=== PATIENT | male | born 1945 | race Caucasian/White ===

== ENCOUNTER 2020-01-28 12:12 | Observation (INO) | payer MEDICARE, SELFPAY ==
[2020-01-28] VITALS (8 sets, daily range): BP systolic 130–156; BP diastolic 60–84; PULSE 68–96; RESP 14–17; TEMP 36.8–36.9; O2SAT 97–100; BMI 27.6
--- NOTE | ~2020-01-28 | XR_ITS ---
XR knee LT 3V DATE: 01/28/2020 12:52 INDICATION: Pain, redness and swelling of left knee for days TECHNIQUE: 3 views COMPARISON: 10/26/2016 left knee FINDINGS: There is anterior soft tissue swelling, particularly in the suprapatellar area. Mild knee j oint effusion is suggested. There is minimal periarticular spurring of the patella. There are some stable calcifications overlyin g the suprapatellar area, so noted on 10/26/2016 No fracture or dislocation, periosteal reaction or bone destruction, radiopaque intra-articular loose body or chondrocalcinosis is detected. IMPRESSION: Anterior soft tissue swelling and mild joint effusion Reviewed, dictated and finalized at location A.
--- NOTE | ~2020-01-28 | US_ITS ---
. EXAMINATION: US_ABSCYSTIMG_US DATE: 01/29/2020 15:52 INDICATION: Pain at the right first metatarsophalangeal joint TECHNIQUE: A time-out was performed to verify the patient's name, date of , and procedure to be performed . The procedure and its benefits and risks were discussed with the patient. Risks specifically discus sed included bleeding and infection. The patient understood the risks and agreed to proceed. The skin over the dorsum of the right first metatarsophalangeal joint was prepped and draped in usual sterile manner. 0.3 mL 1% lidocaine was used for local anesthesia. Utilizing ultrasound guidance a 21-gaug e needle was advanced into the distended hypoechoic dorsal recess of the joint space but yielded negl igible fluid visible only at the hub of the needle. This was nonetheless and to the lab for potential stenosis. A second 21-gauge needle was advanced into the tarsal recess and lavaged with 0.5 mL of pr eservative free sterile saline. The lavage fluid transitioned to a more turbid yellowish-mendoza color an d this was also sent to the lab for studies as ordered by the referring physician. Passes were made w ith a 25G needle into the lesion. A sterile bandage was applied. There were no immediate complicati ons. FINDINGS: Grayscale ultrasound images demonstrate aspiration needle advanced into the distended hypoechoic dors al recess of the first metatarsophalangeal joint. There are few minute mobile echogenic foci within t he recess but no clearly anechoic fluid suggesting synovitis potentially with crystals. IMPRESSION: 1. Ultrasound-guided aspiration of the right first metatarsophalangeal joint yielding scant fluid on initial aspiration but with successful lavage of the joint space with preservative-free marrow saline with no clearly discernible change in color and transparency of the lavage fluid. Reviewed, dictated and finalized at location A. IMPRESSION: 1. Ultrasound-guided aspiration of the right first metatarsophalangeal joint [place] scant fluid on initial aspiration but with successful lavage of the join t space with preservative-free marrow saline with no clearly discernible change in color and transparency of the lavage fluid.
--- NOTE | ~2020-01-28 | US_ITS ---
EXAMINATION: US knee asp inj w image LT DATE: 01/28/2020 15:03 INDICATION: Left anterior knee edema and erythema. TECHNIQUE: The procedure including the risks and benefits was discussed with the patient. Risks discu ssed included bleeding and infection. The patient understood the risks and agreed to proceed. The sk in overlying the lateral aspect of the suprapatellar pouch of the left knee was prepped and draped in usual sterile fashion. Anesthetic was administered with 1% lidocaine subcutaneously. An 20 gauge n eedle was advanced under continuous ultrasound observation into the fluid collection at the suprapate llar pouch 13 mm of fluid was aspirated and sent to the lab. The needle was removed and the entry si te was cleaned and dressed. Post procedure ultrasound demonstrated no hemorrhage. FINDINGS: Ultrasound images demonstrate a small left knee joint effusion with the needle within the f luid at the lateral aspect of the suprapatellar pouch. 13 mL of clear yellow viscous fluid was aspira pito. IMPRESSION: 1. Successful Ultrasound-guided knee joint aspiration. Reviewed, dictated and finalized at location A.
--- NOTE | ~2020-01-28 | XR_ITS ---
XR foot RT min 3V DATE: 01/29/2020 14:55 INDICATION: Pain, erythema, swelling at right first metatarsophalangeal joint. TECHNIQUE: 4 views COMPARISON: None FINDINGS: There is mild osteoarthritis at the first metatarsophalangeal joint. There is osteoarthriti c change at some of the tarsal metatarsal and interphalangeal joints as well. Os tibiale externum, normal variant. No fracture, dislocation, periosteal reaction or bone destruction. There is mild plantar calcaneal en thesopathy. IMPRESSION: Polyarticular osteoarthritis Reviewed, dictated and finalized at location A.
--- NOTE | 2020-01-28 12:44 | PC.NURSE ---
Pt to XRAY via WC.
--- NOTE | 2020-01-28 12:47 | ED.LOWEXIN ---
HPI - Extremity Injury (Lower) General Chief Complaint: Extremity Injury, Lower Stated Complaint: left knee pain Time Seen by Provider: 01/28/20 12:27 Source: patient Mode of arrival: ambulatory Limitations: no limitations History of Present Illness HPI Narrative: This is a 74 year old male that presents to the ER for left knee swelling and redness x 3 days. Reports he had an injury to the knee a couple weeks ago when he tripped and fell forward walking up the steps. Reports he skinned the knee then. Reports on Monday he started to note redness and swelling of the knee. Reports pain that is worse with movement and relieved with rest. Denies fever. Related Data Allergies Allergy/AdvReac Type Severity Reaction Status Date / Time morphine Allergy Unknown TROUBLE Verified 01/28/20 12:33 SLEEPING Review of Systems Review of Systems: Narrative: CONSTITUTIONAL: Denies fever SKIN: Reports erythema MUSCULOSKELETAL: Reports joint pain, and myalgia. NEUROLOGIC: Denies numbness All systems reviewed & are unremarkable except as noted in HPI and below PMFSH Past Medical History Medical History (Updated 01/28/20 @ 18:05 by Barbara Yarbrough PA-C) History of hyperlipidemia History of hypertension Social History Social History Gender identity (if verbalized by the patient): Male Exam Narrative: Exam Narrative: GENERAL: Well-appearing, well-nourished, and in no acute distress. HEAD: Normocephalic, atraumatic. EYES: EOMI. EXTREMITIES: Normal range of motion. Left anterior knee with mild to moderate erythema and edema. No lymphangitic streaking. Normal DP pulses SKIN: Warm, dry, no rash. NEURO: No focal deficits. Alert and oriented x3. PSYCH: Normal mood and affect Course Consultations Consultation #1: Spoke with Dr. Nguyen about patient and work-up. Patient will be treated for cellulitis. He will consult. Date: 01/28/20 Time: 18:04 Consultation #2: Spoke with hospitalist about patient and work-up accepts admission Date: 01/28/20 Time: 18:04 Vital Signs Vital signs: Vital Signs Temperature 98.5 F 01/28/20 12:29 Pulse Rate 69 01/28/20 12:29 Respiratory Rate 17 01/28/20 12:29 Blood Pressure 146/67 H 01/28/20 12:29 Pulse Oximetry 100 01/28/20 12:29 Temperature 98.5 F 01/28/20 12:29 Pulse Rate 96 01/28/20 16:45 Respiratory Rate 14 01/28/20 16:45 Blood Pressure 145/70 H 01/28/20 16:45 Pulse Oximetry 99 01/28/20 16:45 MDM - Extremity Injury (Lower) MDM Narrative Medical decision making narrative: Patient presents to the emergency department with left anterior knee swelling and redness. He is afebrile and nontoxic-appearing. CBC is without leukocytosis. Inflammatory markers are elevated. Left knee x-ray shows anterior soft tissue swelling and a mild joint effusion. Left knee joint was aspirated under ultrasound guidance and resulted 13 cc of yellow fluid. No crystals were seen, 1297 nucleated cells with 33% neutrophils. White blood cells were seen, but no organisms. I spoke with Dr. Sue about ultrasound who reports there does not appear to be any fluid collection in the bursa. Spoke with Dr. Nguyen about patient and work-up. Patient will be treated for cellulitis. He will consult. Would like patient started on ceftriaxone and vanc. First dose given in the ED. Spoke with hospitalist about patient and work-up accepts admission Lab Data Attestation: I reviewed the patient's lab results. Result diagrams: 01/28/20 12:59 01/28/20 12:59 Labs: Lab Results 01/28/20 01/28/20 01/28/20 Range/Units 12:59 12:59 12:59 WBC 8.8 (4.5-10.0) K/mm3 RBC 3.91 L (4.6-6.20) M/mm3 Hgb 12.8 L (14.0-18.0) g/dL Hct 38.6 L (42.0-52.0) % MCV 98.7 (80-100) fl MCH 32.7 (26-34) pg MCHC 33.2 (32-36) g/dl RDW 12.8 (11.5-14.5) % Plt Count 144 L (150-375) k/mm3 MPV 10.1 (7.4-10.4) fl Immature Gran % (Auto) 0.7 H (
[2020-01-28 13:09] LABS: Basophils Percent Auto 0.5 % (0.2-1.2); Eosinophils Percent Auto 0.5 % (0-4.4); Hematocrit 38.6 % (42.0-52.0); Hemoglobin 12.8 g/dL (14.0-18.0); Immature Granulocyte Absolute 0.06 K/mm3 (0.00-0.031); Immature Granulocyte Percent A 0.7 % (0-0.5); Immature Platelet Fraction Pct 2.9 % (0.9-11.2); Lymphocytes Absolute Auto 1.61 K/mm3 (0.9-3.2); Lymphocytes Percent Auto 18.3 % (18.3-44.2); Mean Corpuscular HGB Conc 33.2 g/dl (32-36); Mean Corpuscular Hemoglobin 32.7 pg (26-34); Mean Corpuscular Volume 98.7 fl (80-100); Mean Platelet Volume 10.1 fl (7.4-10.4); Monocytes Absolute Auto 0.9 K/mm3 (0.1-0.6); Monocytes Percent Auto 10.5 % (2.6-8.5); Neutrophils Absolute Auto 6.1 K/mm3 (1.3-6.7); Neutrophils Percent Auto 69.5 % (45.5-73.1); Platelet Count Result 144 k/mm3 (150-375); Red Blood Count 3.91 M/mm3 (4.6-6.20); Red Cell Distribution Width 12.8 % (11.5-14.5); White Blood Count 8.8 K/mm3 (4.5-10.0)
[2020-01-28 13:25] LABS: Anion Gap 8 mmol/L (8-16); Blood Urea Nitrogen 16 mg/dL (9-20); Calcium 9.2 mg/dL (8.4-10.2); Carbon Dioxide 28 mmol/L (22-30); Chloride 101 mmol/L (98-107); Estimated CRCL calculation 80 ml/min; Estimated Glomerular Filt Rate > 60; Glucose 106 mg/dL (75-110); Potassium 3.9 mmol/L (3.4-5.0); Sodium 137 mmol/L (137-145); Uric Acid 6.9 mg/dL (3.5-8.5)
[2020-01-28 13:36] LABS: CRP 13.3 mg/dL (<1.0)
[2020-01-28 13:49] LABS: Erythrocyte Sedimentation Rate 111 mm/hr (0-20)
[2020-01-28 14:43] LABS: INR 1.1; Prothrombin Time 14.3 Seconds (11.1-14.7)
[2020-01-28 16:06] LABS: Appearance Synovial Fluid Hazy (Clear); Color Synovial Fluid Yellow (Colorless); Lymphocytes Synovial Fluid 12 %; Macrophages Synovial Fluid 2 %; Monocytes Synovial Fluid 53 %; Neutrophils Synovial Fluid 33 % (0-25); Nucleated Cell Synovial Fluid 1297 /uL (0-200); RBC Synovial Fluid 177 /uL (0-0); Source Synovial Fluid Synovial fluid
[2020-01-28 16:07] LABS: Crystals Synovial Fluid None Seen (None Seen)
--- NOTE | 2020-01-28 17:57 | PC.NURSE ---
Dietary tray ordered for pt.
--- NOTE | 2020-01-28 19:53 | ADMGEN ---
This patient, Malvin Foreman, was admitted to [facility] Surg Room 314-01. Patient/family oriented to hospital policies and general routines including ID bracelet, bed and alarms, visiting hours, pain management, procedures, bathroom and other care routines, personal items, smoking policy, room service/diet, and visiting hours. Valuables list has been completed. Information on how to activate the Rapid Response Team has been discussed. Patient/Family are encouraged to report perceived risks to care and to ask questions if they do not understand what they are told or what they should do.
--- NOTE | 2020-01-28 20:30 | PM.IMHP ---
H&P: HPI History of Present Illness Date/Time: 01/28/20 20:30 Chief complaint: Left knee pain. Narrative: Malvin Foreman is a 74-year-old male with hypertension, hyperlipidemia, chronic mild thrombocytopenia, and history of prostate cancer status post prostatectomy who presented to the emergency department earlier today via private vehicle from home for evaluation of left knee pain. Several weeks ago he fell forward while walking up steps and it sounds like he hit his left knee at that time, with possible small abrasion. It healed without issue however when he awoke several days ago on Monday, the knee was red, swollen, and painful. Due to the pain he has not been able to bear weight as usual, and in fact his purchased a cane that he has been using. The pain seems to ease up with rest. His appetite has been poor but he denies nausea and vomiting. He has not had fever. No chest pain or shortness of breath. No history of multidrug resistant organisms. No history of gout. Review of Systems Review of Systems: Narrative: 12 systems were reviewed with pertinent positives and negatives as per HPI. he has occasional frontal headaches at the end of the day for which he will take Tylenol. He denies cold and flu symptoms. Except as documented, all other systems were reviewed and are negative. [facility] Past Medical History Medical History (Updated 01/28/20 @ 21:03 by Ashlyn Clement PA-C) Chronic anemia Baseline hemoglobin is around 12.0. Hypertension Thrombocytopenia Chronic mild thrombocytopenia. Surgical History Surgical History (Updated 01/28/20 @ 21:02 by Ashlyn Clement PA-C) History of arthroscopy of right knee History of prostatectomy (~06/22/05) Nerve-sparing radical retropubic prostatectomy with bilateral pelvic lymphadenectomy. History of vasectomy (~1988) Status post tendon repair (~11/01/16) Left quadriceps tendon repair. Family History Family History Father Prostate carcinoma Mother Colon cancer Social History Social History (Updated 01/28/20 @ 20:53 by Ashlyn Clement PA-C) Years smoked: 15 Smoking status: Former smoker Tobacco type: cigarettes and cigars Alcohol intake: current Drinks per week: 2 Substance use: never Additional living arrangements comments: Resides in [place] with his spouse. 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 Gender identity (if verbalized by the patient): Male Sexual Orientation (if Verbalized by the Patient): Straight or Heterosexual Spiritual care concerns: No Meds Home Medications and Allergies Home Medications Medication Instructions Recorded Confirmed Type lisinopril-hydrochlorothiazide 1 tablet PO DAILY 01/28/20 01/28/20 History propranolol 10 mg PO DAILY 01/28/20 01/28/20 History sertraline 100 mg PO DAILY 01/28/20 01/28/20 History simvastatin 40 mg PO DAILY 01/28/20 01/28/20 History Allergies Allergy/AdvReac Type Severity Reaction Status Date / Time morphine Allergy Unknown TROUBLE Verified 01/28/20 12:33 SLEEPING Vital Signs Vital Signs - 24 hr 01/28/20 12:29 01/28/20 14:20 01/28/20 16:45 Temperature 98.5 F Pulse Rate 69 68 96 Respiratory Rate 17 15 14 Blood Pressure 146/67 H 130/84 145/70 H Pulse Oximetry 100 100 99 01/28/20 18:22 01/28/20 19:08 01/28/20 19:53 Temperature Pulse Rate 78 82 90 Respiratory Rate 15 16 17 Blood Pressure 152/77 H 156/76 H 150/84 H Pulse Oximetry 98 97 97 Exam Narrative: Exam Narrative: General: Well-developed male in semi-Wetzel position in bed in no distress. Weight: 95.5 kg. BMI 20.6. HEENT: PERRL, EOMI. Sclerae anicteric. Oral mucosa moist. Neck: Supple. Respiratory: Lungs are clear to auscultation bilaterally. Cardiovascular: Regular rate and rhythm with S1-S2. Gastrointestinal: Abdomen is soft, nontender, and nondistended with positive bowel sounds.
[2020-01-28] MEDS: ACETAMINOPHEN 325 MG TABLET 650 MG PO (21:00)
--- NOTE | 2020-01-28 23:54 | PM.CNOR ---
History of Present Illness HPI Consult date: 01/29/20 Chief complaint: Left knee pain. [facility] Past Medical History Medical History (Updated 01/29/20 @ 11:46 by Reagan Hdz PA-C) Chronic anemia Baseline hemoglobin is around 12.0. Dyslipidemia Hypertension Thrombocytopenia Chronic mild thrombocytopenia. Surgical History Surgical History (Updated 01/28/20 @ 21:02 by Ashlyn Clement PA-C) History of arthroscopy of right knee History of prostatectomy (~06/22/05) Nerve-sparing radical retropubic prostatectomy with bilateral pelvic lymphadenectomy. History of vasectomy (~1988) Status post tendon repair (~11/01/16) Left quadriceps tendon repair. Family History Family History Father Prostate carcinoma Mother Colon cancer Social History Social History (Updated 01/28/20 @ 20:53 by Ashlyn Clement PA-C) Years smoked: 15 Smoking status: Former smoker Tobacco type: cigarettes and cigars Alcohol intake: current Drinks per week: 2 Substance use: never Additional living arrangements comments: Resides in [place] with his spouse. 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 Gender identity (if verbalized by the patient): Male Sexual Orientation (if Verbalized by the Patient): Straight or Heterosexual Spiritual care concerns: No Meds Home Medications and Allergies Home Medications Medication Instructions Recorded Confirmed Type lisinopril-hydrochlorothiazide 1 tablet PO DAILY 01/28/20 01/28/20 History propranolol 10 mg PO DAILY 01/28/20 01/28/20 History sertraline 100 mg PO DAILY 01/28/20 01/28/20 History simvastatin 40 mg PO DAILY 01/28/20 01/28/20 History Allergies Allergy/AdvReac Type Severity Reaction Status Date / Time morphine Allergy Unknown TROUBLE Verified 01/28/20 12:33 SLEEPING Vital Signs Vital Signs - 24 hr 01/28/20 12:29 01/28/20 14:20 01/28/20 16:45 Temperature 36.9 C Pulse Rate 69 68 96 Respiratory Rate 17 15 14 Blood Pressure 146/67 H 130/84 145/70 H Pulse Oximetry 100 100 99 01/28/20 18:22 01/28/20 19:08 01/28/20 19:40 Temperature 36.9 C Pulse Rate 78 82 78 Respiratory Rate 15 16 16 Blood Pressure 152/77 H 156/76 H 145/60 H Pulse Oximetry 98 97 99 01/28/20 19:53 01/28/20 22:00 Temperature 36.8 C Pulse Rate 90 76 Respiratory Rate 17 16 Blood Pressure 150/84 H 137/62 Pulse Oximetry 97 97 Results Labs Result Diagrams: 01/29/20 05:23 01/29/20 05:23 Labs: Abnormal lab results 01/28/20 01/28/20 01/28/20 Range/Units 12:59 12:59 12:59 RBC 3.91 L (4.6-6.20) M/mm3 Hgb 12.8 L (14.0-18.0) g/dL Hct 38.6 L (42.0-52.0) % Plt Count 144 L (150-375) k/mm3 Immature Gran % (Auto) 0.7 H (0-0.5) % [place] % (Auto) 10.5 H (2.6-8.5) % [place] # (Auto) 0.9 H (0.1-0.6) K/mm3 Abs Immat Gran (auto) 0.06 H (0.00-0.031) K/mm3 ESR 111 H (0-20) mm/hr APTT 39.0 H (22.3-36.8) SECONDS C-Reactive Protein 13.3 H (<1.0) mg/dL Synovial Appearance (Clear) Synovial RBC (0-0) /uL Synovial Nuc Cells (0-200) /uL Synovial Neutrophils (0-25) % 01/28/20 Range/Units 14:45 RBC (4.6-6.20) M/mm3 Hgb (14.0-18.0) g/dL Hct (42.0-52.0) % Plt Count (150-375) k/mm3 Immature Gran % (Auto) (0-0.5) % [place] % (Auto) (2.6-8.5) % [place] # (Auto) (0.1-0.6) K/mm3 Abs Immat Gran (auto) (0.00-0.031) K/mm3 ESR (0-20) mm/hr APTT (22.3-36.8) SECONDS C-Reactive Protein (<1.0) mg/dL Synovial Appearance Hazy A (Clear) Synovial RBC 177 H (0-0) /uL Synovial Nuc Cells 1297 H (0-200) /uL Synovial Neutrophils 33 H (0-25) % H & H 01/28/20 Range/Units 12:59 Hgb 12.8 L (14.0-18.0) g/dL Hct 38.6 L (42.0-52.0) % Coagulation 01/28/20 Range/Units 12:59 INR 1.1 All other labs normal. Quality VTE Prophylaxis VTE prophylaxis
[2020-01-29] MEDS: ACETAMINOPHEN 325 MG TABLET 650 MG PO ×2 (03:10→06:57)
[2020-01-29 06:00] VITALS: BP 140/62; PULSE 68; RESP 16; TEMP 36.4; O2SAT 100
[2020-01-29 06:02] LABS: Basophils Absolute Auto 0.1 K/mm3 (0.0-0.1); Basophils Percent Auto 0.5 % (0.2-1.2); Eosinophils Absolute Auto 0.1 K/mm3 (0-0.3); Eosinophils Percent Auto 0.7 % (0-4.4); Hematocrit 35.3 % (42.0-52.0); Hemoglobin 11.8 g/dL (14.0-18.0); Immature Granulocyte Absolute 0.05 K/mm3 (0.00-0.031); Immature Granulocyte Percent A 0.5 % (0-0.5); Lymphocytes Absolute Auto 1.29 K/mm3 (0.9-3.2); Lymphocytes Percent Auto 12.9 % (18.3-44.2); Mean Corpuscular HGB Conc 33.4 g/dl (32-36); Mean Corpuscular Hemoglobin 32.8 pg (26-34); Mean Corpuscular Volume 98.1 fl (80-100); Mean Platelet Volume 10.3 fl (7.4-10.4); Monocytes Absolute Auto 1.3 K/mm3 (0.1-0.6); Monocytes Percent Auto 12.5 % (2.6-8.5); Neutrophils Absolute Auto 7.3 K/mm3 (1.3-6.7); Neutrophils Percent Auto 72.9 % (45.5-73.1); Platelet Count Result 130 k/mm3 (150-375); Red Cell Distribution Width 12.7 % (11.5-14.5)
[2020-01-29 06:06] LABS: Anion Gap 9 mmol/L (8-16); Blood Urea Nitrogen 17 mg/dL (9-20); Calcium 9.1 mg/dL (8.4-10.2); Carbon Dioxide 27 mmol/L (22-30); Chloride 98 mmol/L (98-107); Estimated CRCL calculation 90 ml/min; Estimated Glomerular Filt Rate > 60; Glucose 114 mg/dL (75-110); Potassium 4.1 mmol/L (3.4-5.0); Sodium 134 mmol/L (137-145)
[2020-01-29 06:57] VITALS: TEMP 38.2
[2020-01-29] MEDS: SIMVASTATIN 20 MG TABLET 40 MG PO (08:41)
[2020-01-29] MEDS: hydroCHLOROthiazide 12.5 MG CAPSULE PO (08:41)
[2020-01-29] MEDS: lisinopriL 20 MG TABLET PO (08:41)
[2020-01-29] MEDS: SERTRALINE HCL 50 MG TABLET 100 MG PO (08:42)
[2020-01-29 10:24] VITALS: PULSE 68
[2020-01-29] MEDS: PROPRANOLOL HCL 10 MG TABLET PO (10:24)
--- NOTE | 2020-01-29 11:44 | PM.IMPN ---
Progress Note: A&P Assessment and Plan (1) Infection of left knee: Code(s): M00.9 - Pyogenic arthritis, unspecified Status: Acute Assessment and Plan: Left knee cellulitis versus bursitis versus possible septic joint. Dr. Nguyen has been consulted from ED and appreciate input. Status post arthrocentesis per IR, with hazy yellow fluid, 1297 nucleated cells and 33% neutrophils. Gram stain of fluid shows many WBC with no organisms seen. Cultures pending. He states he feels better today. Anxious to be discharged. He has been started on empiric ceftriaxone and vancomycin, pending cultures. Will continue this for now Will await further input from Dr. Nguyen PT/OT have been ordered (2) Hypertension: Code(s): I10 - Essential (primary) hypertension Status: Acute Assessment and Plan: Blood pressures 140s sys today Continue antihypertensives and monitor daily (3) Chronic anemia: Code(s): D64.9 - Anemia, unspecified Status: Acute Assessment and Plan: Chronic and stable on review of previous labs. (4) Thrombocytopenia: Code(s): D69.6 - Thrombocytopenia, unspecified Status: Acute Assessment and Plan: Chronic and stable on review of previous labs. Subjective Date/time seen: 01/29/20 11:44 Interval history: Patient is a 74 yo M with history of hypertension, dyslipidemia, chronic mild thrombocytopenia, and history of prostate cancer status post prostatectomy who is here for evaluation of possible left knee cellulitis vs bursitis vs septic arthritis. Patient states he is feeling better today. Pain is less severe and is able to bend his left leg at the knee more so then from Monday. Swelling has improved as well. He has no other complaints. Anxious to be discharged. Denies f/c/s, headaches, dizziness, lightheadedness, cp/palpitations, sob/cough, n/v/d/c, abd pain, changes in BMs, dysuria, hematuria, cloudy urine, calf pain/swelling. Review of Systems Review of Systems: All systems reviewed & are unremarkable except as noted in HPI and below Exam Narrative: Exam Narrative: General: Patient resting supine in bed in no acute distress. HEENT: Normocephalic, EOMI, oral mucosa moist. Cardiovascular: Rate and rhythm are regular. No notable murmur, rub, or gallop. Respiratory: Lungs clear to auscultation all stone. Non-labored breathing. Abdomen: Soft, non-tender, non-distended, bowel sounds present. Extremities: Peripheral pulses intact. Minimal edema, with erythema and warmth on left anterior knee. Mildly tender to touch. Slight pain with active and passive range of motion. NVI b/l LE. NTTP b/l calves Neuro: No focal neurological deficits. Speech is clear. Objective Data Vital Signs Vital Signs: Last Vital Signs Temp 100.8 F H 01/29/20 06:57 Pulse 68 01/29/20 10:24 Resp 16 01/29/20 06:00 BP 140/62 01/29/20 06:00 Pulse Ox 100 01/29/20 06:00 Intake/Output Intake/Output: Intake & Output 01/26/20 01/27/20 01/28/20 01/29/20 23:59 23:59 23:59 23:59 Intake Total 600 940 Output Total 13 100 Balance 587 840 Meds/Results Medications: Active Medications Generic Name Dose Route Start Last Admin Trade Name Freq PRN Reason Stop Dose Admin Acetaminophen 650 mg 01/28/20 20:44 01/29/20 06:57 Tylenol Tablet PO 650 mg Q6H PRN Administration Mild Pain (1-3) or Fever Hydrochlorothiazide 12.5 mg 01/29/20 09:00 01/29/20 08:41 Hydrochlorothiazide PO 12.5 mg DAILY ANSHU Administration Ceftriaxone Sodium 2 gm in 100 mls @ 200 mls/hr 01/29/20 17:00 Rocephin 2 Gm/D5w 100 Ml IVPB Q24H ANSHU Vancomycin HCl 1,500 mg in 500 mls @ 333.333 mls/hr 01/29/20 06:00 01/29/20 0
--- NOTE | 2020-01-29 13:53 | PCPTNOTE ---
PT eval on hold awaiting Ortho consult.
--- NOTE | 2020-01-29 13:55 | PCOTNOTE ---
OT eval on hold awaiting Ortho consult.
[2020-01-29 14:00] VITALS: BP 122/57; PULSE 66; RESP 16; TEMP 36.5; O2SAT 98
--- NOTE | 2020-01-29 14:35 | PM.CNOR ---
Assessment and Plan Additional Plan Patient is a 74-year-old gentleman who is known to me. Approximately 3 or 4 years ago he had a quadriceps tendon repair on the left knee. He did well postoperatively. He has had no problems until 4 days ago when he was on a long car ride with his knee bent and knee developed gradual onset of progressively worsening severe pain in the anterior aspect of his left knee and redness and warmth. He has never had this before. He had no fevers or chills he has had no recent infections. He has been able to continue walking on this. He was seen in the emergency room where the area looked bright red in the front of his knee. He was sent for an ultrasound which showed no evidence of prepatellar bursal fluid but did show a moderate effusion in the knee and the knee was aspirated of fluid which was sent for cell count and analysis. There were 1300 nucleated white cells of which only 33% were neutrophils which argues against acute septic arthritis. His white count this morning is 10. His sedimentation rate yesterday was a 111 C reactive protein 13. A uric acid was high normal at 6.9. He does take lisinopril as part of his blood pressure regimen. His blood pressure has been well controlled here in the hospital. He is also on lisinopril and propranolol. He states he did have a fall 3 weeks ago and hit his head but he did not injure his knee at all nor did he have any injury to the knee on the day of the onset of the symptoms.He was admitted placed on ceftriaxone 2 g Q 24 hours and vancomycin. Over the last 18 hours is pain and redness have dramatically improved. On exam today he has range of motion from 0-130 degrees at the left knee actively. He has 5/5 quadriceps strength. There is no soft tissue swelling in the front of the knee but he does have brawny discoloration over the front of the knee in the area about 6 in long 4 in wide centered over the patella. There is no prepatellar swelling or bursal effusion palpable. He did have an a focal area of moderately severe tenderness about 1 in proximal to the patella which would be the quadriceps tendon where he does have a nonabsorbable sutures in the tendon. There is no superficial swelling or fluctuance in this area however. The distal quadriceps tendon is thickened in this region as 1 would expect following rupture repair. The knee itself was nontender and he had no palpable effusion in the knee today. His chief complaint today is his right 1st metatarsal phalangeal joint which started hurting him in the mill the night. Has a little mild symptoms in the same joint to the left. On exam he has rather severe tenderness around the right 1st metatarsophalangeal joint. There is erythema on the medial aspect of the joint and mild swelling. I asked him about gout. He has never been diagnosed as having gout but he did have some arthritis flare-up some years ago that he suspected might be gout. His father and his older years had advanced gout. He had x-rays performed of the left knee in yesterday in the emergency room which demonstrate thickening of the distal quadriceps tendon than some focal calcifications just proximal to the patella representing dystrophic calcifications common with tendinopathy in tendon rupture and mild joint effusion suggested. Today patient states he feels 75% better already with respect to his left knee but he can't walk now because of the severe metatarsophalangeal joint pain in the right foot. Impression: Patient has elevated inflammatory markers normal white count no fevers or chills. He has had such dramatic improvement in the redness warmth and pain in his distal quadriceps tendon region that I a would think this would not be consistent with a bacterial infection involving the tendon and sutures. Nevertheless, that is a diagnostic possibility. Gout can certainly Yamilex lysed and form tophi and areas of scar tissue and has a predilection for these areas and this
[2020-01-29 16:54] LABS: Crystals Synovial Fluid Many Msu (None Seen)
[2020-01-29 22:00] VITALS: BP 114/65; PULSE 71; RESP 16; TEMP 36.4; O2SAT 96
[2020-01-30 05:29] LABS: Basophils Percent Auto 0.4 % (0.2-1.2); Eosinophils Absolute Auto 0.1 K/mm3 (0-0.3); Eosinophils Percent Auto 1.2 % (0-4.4); Hemoglobin 11.8 g/dL (14.0-18.0); Immature Granulocyte Absolute 0.04 K/mm3 (0.00-0.031); Immature Granulocyte Percent A 0.5 % (0-0.5); Lymphocytes Percent Auto 20.5 % (18.3-44.2); Mean Corpuscular HGB Conc 33.7 g/dl (32-36); Mean Corpuscular Hemoglobin 32.4 pg (26-34); Mean Corpuscular Volume 96.2 fl (80-100); Mean Platelet Volume 9.8 fl (7.4-10.4); Monocytes Absolute Auto 0.8 K/mm3 (0.1-0.6); Monocytes Percent Auto 10.7 % (2.6-8.5); Neutrophils Absolute Auto 5.2 K/mm3 (1.3-6.7); Neutrophils Percent Auto 66.7 % (45.5-73.1); Platelet Count Result 140 k/mm3 (150-375); Red Blood Count 3.64 M/mm3 (4.6-6.20); Red Cell Distribution Width 12.5 % (11.5-14.5); White Blood Count 7.8 K/mm3 (4.5-10.0)
[2020-01-30] MEDS: methylPREDNISolone (MEDROL) DOSEPACK 4 MG TABLETS PO ×2 (05:38→13:49)
[2020-01-30 05:40] LABS: Anion Gap 8 mmol/L (8-16); Blood Urea Nitrogen 14 mg/dL (9-20); Calcium 9.2 mg/dL (8.4-10.2); Carbon Dioxide 26 mmol/L (22-30); Chloride 100 mmol/L (98-107); Estimated CRCL calculation 90 ml/min; Estimated Glomerular Filt Rate > 60; Glucose 114 mg/dL (75-110); Magnesium 2.1 mg/dL (1.6-2.3); Potassium 3.8 mmol/L (3.4-5.0); Sodium 134 mmol/L (137-145)
[2020-01-30 05:56] VITALS: BP 135/64; PULSE 65; RESP 16; TEMP 36.2; O2SAT 99
[2020-01-30 05:57] LABS: Vancomycin Trough 8.7 ug/mL (10.0-20.0)
--- NOTE | 2020-01-30 07:08 | PM.PNORT ---
Progress Note: A&P Additional Plan Aspiration from toe showed MS crystals , this would confirm this appears to be gout attacks of both knee and toe. cx-from knee neg at this point. Pt states knee and toe are better this am, he is on medrol dose pack. Will stop abx , have PT work with pt today to get ambulating. Hopefully he will be comfortable by tomorrow to go home. discussed with him he will need to have PCP get him on [facility]out care Subjective Subjective Date/Time Seen: 01/30/20 07:08 Objective Data Vital Signs Vital Signs: Vital Signs - 24 hr 01/29/20 10:24 01/29/20 14:00 01/29/20 22:00 Temperature 36.5 C 36.4 C Pulse Rate 68 66 71 Respiratory Rate 16 16 Blood Pressure 122/57 L 114/65 Pulse Oximetry 98 96 01/30/20 05:56 Temperature 36.2 C L Pulse Rate 65 Respiratory Rate 16 Blood Pressure 135/64 Pulse Oximetry 99 Intake/Output Intake/Output: Intake & Output 01/27/20 01/28/20 01/29/20 01/30/20 23:59 23:59 23:59 23:59 Intake Total 600 2090 700 Output Total 13 400 1700 Balance 587 1690 -1000 Meds/Results Medications: Active Medications Generic Name Dose Route Start Last Admin Trade Name Freq PRN Reason Stop Dose Admin Acetaminophen 650 mg 01/28/20 20:44 01/29/20 06:57 Tylenol Tablet PO 650 mg Q6H PRN Administration Mild Pain (1-3) or Fever Ceftriaxone Sodium/Dextrose 1 gm in 50 mls @ 100 mls/hr 01/29/20 18:00 01/29/20 19:00 Rocephin 1 Gm/D5w 50 Ml IVPB Infused QPM ANSHU Infusion Vancomycin HCl 1,750 mg in 500 mls @ 250 mls/hr 01/30/20 18:00 Vancomycin 1,750 Mg/D5w 500 Ml IVPB Q12H ANSHU Lisinopril 20 mg 01/29/20 09:00 01/29/20 08:41 Prinivil PO 02/28/20 09:01 20 mg DAILY ANSHU Administration Methylprednisolone 8 mg 01/30/20 06:30 01/30/20 05:38 Medrol Dosepak PO 02/04/20 07:29 8 mg 0630 ANSHU Administration Taper Propranolol HCl 10 mg 01/29/20 09:00 01/29/20 10:24 Inderal PO 10 mg DAILY ANSHU Administration Sertraline HCl 100 mg 01/29/20 09:00 01/29/20 08:42 Zoloft PO 100 mg DAILY ANSHU Administration Simvastatin 40 mg 01/29/20 09:00 01/29/20 08:41 Zocor PO 40 mg DAILY ANSHU Administration Radiology Results: ITS Impressions Knee X-Ray 01/28/20 12:53 IMPRESSION: Anterior soft tissue swelling and mild joint effusion Joint Aspiration/Injection 01/28/20 15:23 IMPRESSION: 1. Successful Ultrasound-guided knee joint aspiration. Foot X-Ray 01/29/20 14:56 IMPRESSION: Polyarticular osteoarthritis Cyst Aspiration Ultrasound 01/29/20 16:12 IMPRESSION: 1. Ultrasound-guided aspiration of the right first metatarsophalangeal joint yielding scant fluid on initial aspiration but with successful lavage of the joint space with preservative-free marrow saline with no clearly discernible change in color and transparency of the lavage fluid. Labs Labs: Laboratory Results - last 24 hr 01/29/20 01/30/20 01/30/20 15:38 05:13 05:13 WBC 7.8 RBC 3.64 L Hgb 11.8 L Hct 35.0 L MCV 96.2 MCH 32.4 MCHC 33.7 RDW 12.5 Plt Count 140 L MPV 9.8 Immature Gran % (Auto) 0.5 Neut % (Auto) 66.7 Lymph % (Auto) 20.5 [place] % (Auto) 10.7 H Eos % (Auto) 1.2 Baso % (Auto) 0.4 Lymph # (Auto) 1.60 [place] # (Auto) 0.8 H Eos # (Auto) 0.1 Baso # (Auto) 0.0 Abs Immat Gran (auto) 0.04 H Absolute Neuts (auto) 5.2 Absolute Nucleated RBC 0.0 Nucleated RBC % 0.0 Sodium Potassium Chloride Carbon Dioxide Anion Gap BUN Creatinine Estim Creat Clear Calc Estimated GFR Glucose Calcium Magnesium Synovial Crystals Many msu Vancomycin Trough 8.7 L 01/30/20 05:13 WBC RBC Hgb Hct MCV MCH MCHC RDW Plt Count MPV Immature Gran % (Auto) Neut % (Auto) Lymph % (Auto) [place] % (Auto) Eos % (Auto) Baso % (Auto) Lymph # (Auto) [place] # (Auto) Eos # (Auto)
[2020-01-30 09:35] VITALS: PULSE 64
[2020-01-30] MEDS: SIMVASTATIN 20 MG TABLET 40 MG PO (09:35)
[2020-01-30] MEDS: SERTRALINE HCL 50 MG TABLET 100 MG PO (09:35)
[2020-01-30] MEDS: PROPRANOLOL HCL 10 MG TABLET PO (09:35)
[2020-01-30] MEDS: lisinopriL 20 MG TABLET PO (09:37)
--- NOTE | 2020-01-30 12:30 | PM.DS ---
DS: Admitting Diagnosis Admitting Diagnosis Admitting Diagnosis: Left knee pain. DS: Discharge Diagnosis Discharge Diagnosis (1) Gout attack: Code(s): M10.9 - Gout, unspecified Status: Acute Assessment and Plan: Orthopedic Surgery consulted and appreciate recommendation. Aspiration of right great toe shows MSU crystals, which would confirm a gout attack in knee and toe. Patient is now on medrol dosepak and antibiotics were discontinued per ortho. Pain has significantly improved since admission. PT/OT have no recommendations at discharge Will plan for discharge today if okay with Ortho. F/u with PCP after discharge for further management Continue medrol dosepak (2) Hypertension: Code(s): I10 - Essential (primary) hypertension Status: Acute Assessment and Plan: Blood pressures 130s sys today Continue antihypertensives F/u with PCP (3) Chronic anemia: Code(s): D64.9 - Anemia, unspecified Status: Acute Assessment and Plan: Chronic and stable on review of previous labs. (4) Thrombocytopenia: Code(s): D69.6 - Thrombocytopenia, unspecified Status: Acute Assessment and Plan: Chronic and stable on review of previous labs. DS: Summary Hospital Course Reason for hospitalization: Left knee effusion; gout attack Hospital Course: Patient is a 74 yo M with hypertension, hyperlipidemia, chronic mild thrombocytopenia, and history of prostate cancer status post prostatectomy who presented to the emergency department on 01/27 via private vehicle from home for evaluation of left knee pain. While in the ED, he was found to have a left knee joint effusion; this was aspirated under US guided needle which 13 cc of yellow fluid, no crystals, 1297 nucleated cells, 33% neutrophils. WBC seen but no organisms. Dr. Nguyen was consulted in the ED and recommended admission to be treated for cellulitis. Vanc and Rocephin started from the ED. Patient admitted under this setting. Please see H&P for further details. Presenting VS: Temp Pulse Resp BP Pulse Ox 98.5 F 69 17 146/67 H 100 01/28/20 12:29 01/28/20 12:29 01/28/20 12:29 01/28/20 12:29 01/28/20 12:29 Presenting Pertinent labs: CRP 13.3; serum uric acid 6.9. Left knee synovial fluid showed yellow/hazy fluid, 177 RBC, 1297 nuc cells, 33% neutrophils, 53% monocytes, 12% lymph, 2% macrophages, no synovial crystals seen. Right great toe aspiration showed many MSU crystals. CBC, coag, chemistry otherwise unremarkable Pathology: Left knee synovial fluid revealed acute inflammation, fragments of birefringent foreign material of uncertain clinical significance, and no crystals Micro: synovial fluid of left knee showed many WBC seen and no organisms seen on gram stain; anaerobic and aerobic cultures NGTD x3 days. Right great toe fluid showed many WBC and no organisms seen; anaerobic and aerobic cultures NGTD x 2 days Imaging: Knee X-Ray 01/28/20 12:53 IMPRESSION: Anterior soft tissue swelling and mild joint effusion Joint Aspiration/Injection 01/28/20 15:23 IMPRESSION: 1. Successful Ultrasound-guided knee joint aspiration. Foot X-Ray 01/29/20 14:56 IMPRESSION: Polyarticular osteoarthritis Cyst Aspiration Ultrasound 01/29/20 16:12 IMPRESSION: 1. Ultrasound-guided aspiration of the right first metatarsophalangeal joint yielding scant fluid on initial aspiration but with successful lavage of the joint space with preservative-free marrow saline with no clearly discernible change in color and transparency of the lavage fluid. ECG: none Patient was admitted to the hospitalist service for further evaluation. Patient had marked improvement in his left knee pain after admission. By day of discharge, ROM and pain had signi
== END 2020-01-30 14:25 | disposition home or self-care (01) ==
LOC: ANHED 18:05 → ANH3MEDSUR 18:56
PROVIDERS: Orthopaedic Surgery; Physician Assistant; Admitting Provider Family Medicine; Emergency Provider Emergency Medicine; PCP Family Medicine; Visit Provider Hospitalist
DX: M10.9 Gout, unspecified (principal); L03.116 Cellulitis of left lower limb; M00.9 Pyogenic arthritis, unspecified; M25.462 Effusion, left knee; D64.9 Anemia, unspecified; D69.6 Thrombocytopenia, unspecified; I10 Essential (primary) hypertension; E78.5 Hyperlipidemia, unspecified; Z90.79 Acquired absence of other genital organ(s); Z87.891 Personal history of nicotine dependence; Z85.46 Personal history of malignant neoplasm of prostate
CPT/HCPCS: 10160; 20611; 36415; 73562; 73630; 76942; 80048; 80202; 83735; 84550; 85025; 85055; 85610; 85652; 85730; 86140; 87070; 87075; 87205; 89051; 89060; 96365; 96366; 96367; 97161; 97165; 99285; A9270; G0378; J0696; J3370

== ENCOUNTER 2020-04-01 10:53 | Outpatient (NON) | payer MEDICARE, SELFPAY ==
[2020-04-02 19:53] LABS: SARS-CoV-2 RNA PCR Negative
== END 2020-04-01 10:54 ==
LOC: ANHCOVIDDT 10:55
PROVIDERS: PCP Family Medicine; Visit Provider Family Medicine
DX: Z20.828 Contact with and (suspected) exposure to other viral communicable diseases (principal); R05 Cough
CPT/HCPCS: 87635; C9803; U0003

== ENCOUNTER 2020-04-30 11:35 | Outpatient (NON) | payer MEDICARE, SELFPAY ==
[2020-05-01 00:27] LABS: SARS-CoV-2 RNA PCR Negative
== END 2020-04-30 11:36 ==
LOC: ANHCOVIDDT 11:36
PROVIDERS: PCP Family Medicine; Visit Provider Family Medicine
DX: Z20.828 Contact with and (suspected) exposure to other viral communicable diseases (principal); R06.00 Dyspnea, unspecified
CPT/HCPCS: 87635; C9803; U0003

== ENCOUNTER 2023-09-01 11:14 | Outpatient (CLI) | payer MEDICARE, SELFPAY ==
--- NOTE | ~2023-09-01 | PE_ITS ---
EXAMINATION: PET_PETPSMAST_PT DATE: 09/01/2023 13:47 INDICATION: Prostate cancer TECHNIQUE: 4.899 mCi of Locametz Ga-68([id number]) was administered i.v. Low dose computed melony ography (CT) images were acquired from the base of the brain to the base of the brain to the proximal thighs for attenuation correction and anatomic localization. Positron emission tomography (PET) imag es were acquired in the same distribution beginning 87 minutes after injection. Images including fuse d PET/CT images were reconstructed in axial, coronal, and sagittal planes. Automated exposure control technique was employed. The dose-length product was 1157.00mGy-cm. COMPARISON: None FINDINGS: Head/neck: Typical pattern of symmetric physiologic increased activity in the lacrimal, parotid and submandibula r glands as well as along the mucosa of the nasal and oral cavities, the edson-, naso- and hypopharynx, the glottis and esophagus. No pathologically enlarged cervical lymphadenopathy or suspicious foci of increased uptake in the visualized head or neck. Chest: Calcified nodule at the posterior sulcus of the right lower lobe. No suspicious pulmonary nodules, pn eumonia, pulmonary edema or pleural effusion. Heart size is normal. Atherosclerotic coronary artery c alcification. No pericardial effusion. Thoracic aorta is normal in caliber with . No pathologically e nlarged or PSMA avid thoracic lymphadenopathy. Abdomen/pelvis/proximal thighs: Status post prostatectomy with multiple surgical clips in the pelvis consistent with associated with lymph node dissection. No abnormal soft tissue densities or abnormal PSMA activity at the prostatecto my bed.. Physiologic renal accumulation and excretion of activity in the kidneys, bladder and along p ortions of ureters. Incidentally noted retroaortic left renal vein. Normal degree and slightly hetero genous pattern of increased uptake throughout the liver and spleen without radiologic correlate or do minant PSMA avid lesion. The gallbladder, pancreas and bilateral adrenal glands are normal. Moderate uptake scattered throughout the bowels with typical duodenal and proximal jejunal predominance and wi thout radiologic correlate, also likely physiologic. Normal appendix. Calcification along the penile fascia consistent with Peyronie's disease. Small focus of mild likely extravasated activity at the si te of injection at the right antecubital fossa. No other abnormal foci of increased uptake or patholo gically enlarged lymphadenopathy in the abdomen, pelvis or proximal thighs. Musculoskeletal: There are bridging osteophytes at multiple levels consistent with diffuse idiopathic skeletal hyperos tosis (DISH). No suspicious lytic, blastic or PSMA avid bone lesions to suggest metastatic disease. IMPRESSION: 1. Status post prostatectomy for reported prostate cancer with no lesion suspicious for residual, loc ally recurrent or metastatic disease. Reviewed, dictated and finalized at location B. IMPRESSION: 1. Status post prostatectomy for reported prostate cancer with no lesion suspic ious for residual, locally recurrent or metastatic disease.
== END 2023-09-01 11:15 | disposition home or self-care (01) ==
PROVIDERS: PCP Family Medicine; Visit Provider Urology
DX: C61 Malignant neoplasm of prostate (principal); Z90.79 Acquired absence of other genital organ(s)
CPT/HCPCS: 78815; A9596

== ENCOUNTER 2024-08-09 13:52 | Outpatient (CLI) | payer MEDICARE, SELFPAY ==
--- NOTE | ~2024-08-09 | MR_ITS ---
EXAMINATION: MR knee RT wo con DATE: 08/09/2024 14:34 INDICATION: Right knee pain TECHNIQUE: Magnetic resonance imaging (MRI) of the right knee was performed without intravenous contr ast. Sequences included coronal PD-weighted FSE, coronal PD-weighted FS FSE, sagittal T2-weighted FS E, sagittal PD-weighted FS FSE and axial PD weighted fat saturated FSE. COMPARISON: None. FINDINGS: Medial compartment: Medial meniscus is normal. Region of shallow chondral ulceration and fissuring along the lateral side of the anterior to central weightbearing medial femoral condyle. Lateral compartment: Lateral meniscus is normal. Small region of partial-thickness chondral fissuring without degenerative subchondral changes at the medial side of the lateral patellar facet along the shoulder the intercon dylar eminence. Patellofemoral compartment: Deep chondral fissuring with small focus of underlying subarticular edema-like signal change at the i nferomedial aspect of the medial patellar facet. Ligaments and tendons: Anterior and posterior cruciate ligaments are normal. The medial collateral ligament and fibular dolly ateral ligament complex are normal. Patellar tendon is normal. Moderate tendinopathy with tiny partia l-thickness tear at the central patellar insertion of the tendon and surrounding small enthesophyte a nd small amount of enthesopathic ossification at the distal tendon. The visualized medial and lateral hamstring tendons as well as the iliotibial band are normal. Fluid: Small to moderate-sized knee joint effusion at the suprapatellar pouch. No loose osteochondral bodies identified. Mild prepatellar soft tissue edema without discrete bursal fluid collection. Osseous/other: Normal marrow signal secondary small focus of subarticular edema-like signal change at the inferior m edial patellar facet. No fracture or pathologic marrow replacing process. IMPRESSION: 1. Mild tricompartmental osteoarthritis with small regions of moderate grade chondromalacia along the weightbearing medial and lateral femoral condyles and high-grade chondromalacia at the inferior medi al patellar facet. 2. Chronic distal quadriceps enthesopathy with moderate tendinopathy and tiny intrasubstance tear wit h chronic small enthesophytes and hepatic ossification at its patellar insertion. Reviewed, dictated and finalized at location B. IMPRESSION: 1. Mild tricompartmental osteoarthritis with small regions of moderate grade ch ondromalacia along the weightbearing medial and lateral femoral condyles and hi gh-grade chondromalacia at the inferior medial patellar facet. 2. Chronic distal quadriceps enthesopathy with moderate tendinopathy and tiny i ntrasubstance tear with chronic small enthesophytes and hepatic ossification at its patellar insertion.
== END 2024-08-09 13:53 | disposition home or self-care (01) ==
LOC: GOSHIMG 13:53
PROVIDERS: PCP Orthopaedic Surgery; Visit Provider Orthopaedic Surgery
DX: M17.11 Unilateral primary osteoarthritis, right knee (principal); M94.261 Chondromalacia, right knee; M76.891 Other specified enthesopathies of right lower limb, excluding foot; M61.50 Other ossification of muscle, unspecified site; M67.863 Other specified disorders of tendon, right knee
CPT/HCPCS: 73721

== ENCOUNTER 2024-09-30 11:24 | Outpatient (CLI) | payer MEDICARE, SELFPAY ==
--- OUTSIDE RECORDS SUMMARY | 2024-09-30 11:34 | XMS_ITS | Clinical Summary ---
Author Organization [facility] Address [address] [place] [address] Care Team Providers Care Staff Training And Development Manager Name Role Phone Unavailable Primary Care Provider Unavailabl e Source Comments [facility],non-owned Affiliates and Associated Physician Practices is amultiple site organization consisting of ambulatory clinics and hospital sitesin [place], [place], [place] and [place]. This disclosure is being madepursuant to the Care Everywhere program and may not contain all information available regarding this patient. Last updated 18.[facility] Immunizations Immunization Administration Dates Next Due INFLUENZA VACCINE, HIGH-DOSE , QUADR. (FLUZONE HIGH-DOSE QUADRIVALENT; 65Y+), 0.7 ML ([id number]) 02/20/2020 Social History Tobacco Use Types Packs/Day Years Used Date Smoking Tobacco: Never Assessed Sex and Gender Information Value Date Recorded Sex Assigned at Not on file Legal Sex Male 9:50 AM CDT Gender Identity Not on file Sexual Orientation Not on file Plan of Treatment Health Maintenance Due Date Last Done Comments HEPATITIS C SCREENING 12/23/1965 DTAP/TDAP/TD VACCINES (1 - Tdap) 12/27/1966 PNEUMOCOCCAL VACCINE 50+ (1 of 1 - PCV) 12/27/1997 ZOSTER VACCINE (1 of 2) 12/27/1997 Respiratory Syncytial Virus (RSV) Vaccine Pt: or over 60 yrs (1 - 1-dose 75+ series) 12/27/2022 COVID-19 VACCINE (1 - 2023- season) 2024 DEPRESSION SCREENING 05/22/2024 INFLUENZA VACCINE (Season Ended) 2025 02/20/2020, 03/30/2016, 06/04/2015, Additional history exists HEPATITIS B VACCINE Aged Out No longe r eligible based on patient's age to complete this topic HIB VACCINE Aged Out No longer eligi ble based on patient's age to complete this topic HPV VACCINE Aged Out No longer eligi ble based on patient's age to complete this topic MENINGOCOCCAL (Group B) VACCINE SHARED DECISION-MAKING Aged Out No longer eligible based on patient's age to complete this topic MENINGOCOCCAL GROUPS A/C/Y/W VACCINE Aged Out No longer eligible based on patient's age to complete this topic Insurance [place] [id number]
--- OUTSIDE RECORDS SUMMARY | 2024-09-30 11:34 | XMS_ITS | Continuity of Care Document ---
Author Organization [facility] Address [address] [place] [address] Phone Care Team Providers Care Reach Truck Operator Name Role Phone Tommie Aguilera MD Unavailable Unavailable Medications Medication Instructions Dosage Effective Dates (start - stop) Status Comments No Drug Therapy Prescribed Advance Directives Directive Yes / No Effective Date File Name No Information Encounters Encounter Description Practice Location Reason(s) For Visit Diagnoses Date Provider Providers Copied on Encounter [facility], [address] [place] [address], [facility], tel:[phone] [facility] No Information Willy Reilly. [address], [place], [facility]. tel:[phone] Family History Family Member Type Diagnosis Age At Onset No Information Immunizations Vaccine Date Status Comments Influenza administered Note: Injection - PF ; Source: New Immunization Record Payers Payer name Insurance type Covered democrat ID Authoriza tion(s) No Information Social History [...]
[2024-09-30 13:54] LABS: Basophils Percent Auto 0.4 % (0.2-1.2); Eosinophils Percent Auto 0.6 % (0-4.4); Hematocrit 43.5 % (42.0-52.0); Hemoglobin 14.6 g/dL (14.0-18.0); Immature Granulocyte Absolute 0.02 K/mm3 (0.00-0.031); Immature Granulocyte Percent A 0.3 % (0-0.5); Immature Platelet Fraction Pct 2.9 % (0.9-11.2); Lymphocytes Absolute Auto 1.45 K/mm3 (0.9-3.2); Lymphocytes Percent Auto 21.5 % (18.3-44.2); Mean Corpuscular HGB Conc 33.6 g/dl (32-36); Mean Corpuscular Hemoglobin 30.5 pg (26-34); Mean Platelet Volume 10.1 fl (7.4-10.4); Monocytes Absolute Auto 0.6 K/mm3 (0.1-0.6); Monocytes Percent Auto 9.4 % (2.6-8.5); Neutrophils Absolute Auto 4.6 K/mm3 (1.3-6.7); Neutrophils Percent Auto 67.8 % (45.5-73.1); Platelet Count Result 100 k/mm3 (150-375); Red Blood Count 4.78 M/mm3 (4.6-6.20); White Blood Count 6.7 K/mm3 (4.5-10.0)
[2024-09-30 15:54] LABS: Alanine Aminotransferase 27 U/L (6-50); Albumin Level 4.8 g/dL (3.5-5.1); Alkaline Phosphatase 63 U/L (38-126); Anion Gap 12 mmol/L (4-12); Aspartate Amino Transferase 42 U/L (17-59); Blood Urea Nitrogen 12 mg/dL (9-20); Calcium 9.2 mg/dL (8.4-10.2); Carbon Dioxide 23 mmol/L (22-30); Chloride 105 mmol/L (98-107); Cholesterol 179 mg/dL (0-200); Estimated Glomerular Filt Rate > 60; Glucose 100 mg/dL (65-110); HDL Direct 61 mg/dL; Potassium 3.9 mmol/L (3.4-5.0); Sodium 140 mmol/L (137-145); Triglycerides 224 mg/dL (<150); Uric Acid 7.2 mg/dL (3.5-8.5)
[2024-09-30 16:05] LABS: LDL Cholesterol Direct 67 mg/dL
== END 2024-09-30 11:25 | disposition home or self-care (01) ==
PROVIDERS: PCP Nurse Practitioner Family; Visit Provider Nurse Practitioner Family
DX: D69.6 Thrombocytopenia, unspecified (principal); I10 Essential (primary) hypertension; D64.9 Anemia, unspecified; M10.9 Gout, unspecified
CPT/HCPCS: 36415; 80053; 80061; 84443; 84550; 85025; 85055

== ENCOUNTER 2025-02-13 13:39 | Outpatient (CLI) | payer MEDICARE, SELFPAY ==
--- OUTSIDE RECORDS SUMMARY | 2011-03-28 12:13 | XMS_ITS | Continuity of Care Document ---
Author Organization [facility] Address [address] [place] [address] Phone Care Team Providers Care Blending Tank Helper Name Role Phone Tommie Aguilera MD Unavailable Unavailable Medications Medication Instructions Dosage Effective Dates (start - stop) Status Comments No Drug Therapy Prescribed Advance Directives Directive Yes / No Effective Date File Name No Information Encounters Encounter Description Practice Location Reason(s) For Visit Diagnoses Date Provider Providers Copied on Encounter [facility], [address] [place] [address], [facility], tel:[phone] [facility] No Information Willy Reilly. [address], [place], [facility]. tel:[phone] Family History Family Member Type Diagnosis Age At Onset No Information Immunizations Vaccine Date Status Comments Influenza administered Note: Injection - PF ; Source: New Immunization Record Payers Payer name Insurance type Covered alliance party ID Authoriza tion(s) No Information Social History Type Description Quantity Date Captured Comments Sex Male Smoking Status No Information Chief Complaint And Reason For Visit No Information History Of Present Illness Encounter Date Complaint History Of Prese nt Illness No Information Medications Administered Medication Instructions Dosage Effective Dates (start - stop) Status Comments No Drug Therapy Prescribed Instructions Date Instruction Additional Infor mation No Information Assessments Type Assessment Date No Information
--- NOTE | ~2025-02-13 | PE_ITS ---
EXAMINATION: PET_PETPSMAST_PT DATE: 02/13/2025 15:45 INDICATION: Prostate cancer. TECHNIQUE: 5.034 mCi of Ga-68 gozetotide was administered intravenously. Low dose computed tomography (CT) images were acquired from the base of the brain to the proximal thighs for attenuation correction and anatomic localization. Automated exposure control was employed. Dose-length product (DLP) was 1146 mGy- cm. Positron emission tomography (PET) images were acquired in the same distribution. COMPARISON: PET/CT 09/01/2023 FINDINGS: Head/neck: There are likely changes of right ocular lens replacement surgery. There are no pathologically enlarged lymph nodes. Chest: A calcified right lung nodule and calcified right hilar lymph nodes are consistent with old granulomatous disease. No pleural effusion. The heart size is normal. There are coronary artery calcifications. No pericardial effusion. Abdomen/pelvis/proximal thighs: There is liver surface nodularity, consistent with cirrhosis. The gallbladder is normal. Calcifications in the spleen are consistent with old granulomatous disease. The pancreas, adrenal glands, and kidneys are normal. There is no urolithiasis. There are changes of prost atectomy. There is a 13 mm mass in the prostatectomy bed to the left of midline with maximum SUV of 4.9. There are no dilated loops of bowel. The appendix is normal. There are no pathologically enlarged lymph nodes. There is no free intraperitoneal fluid. There is osteonecrosis in left femoral head. IMPRESSION: 1. 13 mm mass in the prostatectomy bed to the left of midline with maximum SUV of 4.9 suspicious for malignancy. 2. Cirrhosis of the liver. Reviewed, dictated and finalized at location E.
--- OUTSIDE RECORDS SUMMARY | 2025-02-13 16:28 | XMS_ITS | Clinical Summary ---
Author Organization [facility] Address [address] [place] [address] Care Team Providers Care Gold Marker Name Role Phone Unavailable Primary Care Provider Unavailabl e Source Comments [facility],non-owned Affiliates and Associated Physician Practices is amultiple site organization consisting of ambulatory clinics and hospital sitesin [place], [place], [place] and [place]. This disclosure is being madepursuant to the Care Everywhere program and may not contain all information available regarding this patient. Last updated 18.[facility] Immunizations Immunization Administration Dates Next Due INFLUENZA [...] yrs (1 - 1-dose 75+ series) 12/27/2022 DEPRESSION SCREENING 05/22/2024 COVID-19 VACCINE (1 - season) 2025 INFLUENZA VACCINE (#1) 2025 0, 03/30/2016, 06/04/2015, Additional history exists HEPATITIS B [...] patient's age to complete this topic Insurance [place] [id number]
== END 2025-02-13 13:40 | disposition home or self-care (01) ==
PROVIDERS: PCP Nurse Practitioner Family; Visit Provider Radiology Radiation Oncology
DX: C61 Malignant neoplasm of prostate (principal); K74.69 Other cirrhosis of liver
CPT/HCPCS: 78815; A9596